=== PATIENT | female | born 1985 | race Caucasian/White ===

== ENCOUNTER 2018-03-27 09:34 | Day surgery (SDC) | payer OTHER ==
[2018-03-27] MEDS ORDERED: CEFAZOLIN 2 GM/50 ML (PMX) 50 ML IVPB (10:30)
[2018-03-27] MEDS: SOD CHLORIDE 0.9% 1,000 ML IV (10:41)
[2018-03-27 11:02] LABS: INR 0.95; PROTIME 12.8 Sec (11.9-14.9)
[2018-03-27 11:03] LABS: PARTIAL THROMBOPLASTIN TIME 31.5 Sec (25.0-35.0)
[2018-03-27] MEDS: BUPIVACAINE 0.25%/EPI (SDV) 30 ML INJ INJ (13:15)
[2018-03-27] MEDS ORDERED: HYDROCODONE/APAP (5/325) TAB PO (14:00)
[2018-03-27] MEDS ORDERED: morphine 2 MG INJ IV (14:00)
[2018-03-27] MEDS ORDERED: IBUPROFEN 600 MG TAB PO (14:00)
[2018-03-27] MEDS ORDERED: KETOROLAC 30 MG INJ IV ×2 (14:00→14:30)
[2018-03-27] MEDS ORDERED: HYDROmorphONE 1 MG/5 ML IV SYRINGE IV (14:30)
[2018-03-27] MEDS ORDERED: FENTAnyl 50 MCG/ML VIAL IV (14:30)
[2018-03-27] MEDS ORDERED: METOCLOPRAMIDE 10 MG INJ IV (14:30)
[2018-03-27] MEDS ORDERED: DIPHENHYDRAMINE 50 MG INJ IV (14:30)
[2018-03-27] MEDS ORDERED: LABETALOL HCL 20MG INJ IV (14:30)
[2018-03-27] MEDS ORDERED: MEPERIDINE 25 MG INJ IV (14:30)
[2018-03-27] MEDS ORDERED: ONDANSETRON 4 MG INJ IV (14:30)
[2018-03-27] MEDS: HYDROmorphONE 1 MG/5 ML IV SYRINGE IV (14:31)
[2018-03-27] MEDS: HYDROCODONE/APAP (5/325) TAB PO (16:13)
[2018-03-27] MEDS: ONDANSETRON 4 MG INJ IV (16:19)
== END 2018-03-27 17:05 | disposition home or self-care (01) ==
LOC: SDS 09:34
DX: K80.10 Calculus of gallbladder with chronic cholecystitis without obstruction (principal); I10 Essential (primary) hypertension; E11.9 Type 2 diabetes mellitus without complications; G47.30 Sleep apnea, unspecified
CPT/HCPCS: 47562; 82962; 85610; 85730; 88304